=== PATIENT | male | born 1970 | race Caucasian/White ===

== ENCOUNTER 2023-11-20 10:57 | Inpatient (IN) | payer MEDICAID, OTHER ==
[~2023-11-20] VITALS: Ht 177.8 cm; Wt 73.4 kg
[2023-11-20 14:07] LABS: Basophils # (auto) 0.1 10 ^3/uL (0-0.2); Basophils % (auto) 0.5 % (0.0-2.0); Eosinophils # (auto) 0.2 10 ^3/uL (0-0.8); Eosinophils % (auto) 1.4 % (0.0-7.0); Hemoglobin 11.8 g/dL (13.5-17.5); Lymphocytes # (auto) 1.2 10 ^3/uL (0.4-5.4); Lymphocytes % (auto) 7.4 % (10.0-50.0); Mean Corpuscular Hemoglobin 30.3 pg (28.0-32.0); Mean Corpuscular Hgb Conc. 33.7 g/dL (32.0-36.0); Mean Corpuscular Volume 89.9 fL (80.0-100.0); Monocytes # (auto) 1.7 10 ^3/uL (0-1.3); Monocytes % (auto) 10.6 % (0.0-12.0); Neutrophils # (auto) 13.2 10 ^3/uL (1.6-8.6); Neutrophils % (auto) 80.1 % (37.0-80.0); Red Blood Cells 3.89 10^6/uL (4.5-5.90); Red Cell Distribution Width 12.7 % (11.8-14.3); White Blood Cell 16.4 10^3/uL (4.4-10.8)
[2023-11-20 14:17] LABS: Chloride 105 mmol/L (98-107); Sodium 138 mmol/L (136-145)
[2023-11-20 14:18] LABS: Anion Gap 7 (5-15); Calcium 9.2 mg/dL (8.7-10.4); Carbon Dioxide 26 mmol/L (20-30)
[2023-11-20 14:23] LABS: BUN/Creatinine Ratio 16.5 (10.0-20.0); Blood Urea Nitrogen 21 mg/dL (9-23); Glucose 107 mg/dL (74-106)
[2023-11-20] MEDS: VANCOMYCIN 1GM/200ML 200 ML IV ONE (15:27)
[2023-11-20] MEDS: PIPERACILLIN-TAZO 4.5GM 100 ML IV ONE (16:31)
[2023-11-20 16:37] VITALS: PULSE 74; RESP 15; O2SAT 98
[2023-11-20] MEDS: DEXTROSE (50%) 50ML SYRG IV ONE (16:45)
[2023-11-20] MEDS: PIPERACILLIN-TAZOB 3.375GM 100 ML IV ONE (16:45)
[2023-11-20] MEDS ORDERED: ONDANSETRON HCL 4 MG/2 ML VIAL IV PRN (16:45)
[2023-11-20] MEDS ORDERED: HYDROmorphone HCL 2 MG/ML VL/or syr IV PRN (16:45)
[2023-11-20] MEDS ORDERED: VANCOMYCIN PER PHARMACY 0 MG IV SCH (16:45)
[2023-11-20] MEDS: InsuLIN REG 1unit/0.01ml Soln (100units/ml) SC ONE (17:00)
[2023-11-20] MEDS: ACCU-CHEK COMFORT CURVE STRIP VI ONE (18:01)
[2023-11-20] MEDS: ACETAMINOPHEN 325 MG TAB PO PRN (20:00)
[2023-11-20 20:30] VITALS: PULSE 78; RESP 15; O2SAT 97
[2023-11-20] MEDS: SODIUM CHLOR 0.9% PF (SALINE LOCK) 10ML VIAL/SYR IV SCH (22:03)
[2023-11-21] MEDS: VANCOMYCIN 1GM/200ML 200 ML IV SCH (05:57)
[2023-11-21 07:45] VITALS: PULSE 88; RESP 18; O2SAT 98
[2023-11-21 09:49] VITALS: BP 145/87; PULSE 108; RESP 20; TEMP 99.6; O2SAT 92
[2023-11-21] MEDS ORDERED: DEXTROSE (50%) 50ML SYRG IV PRN (10:15)
[2023-11-21] MEDS: InsuLIN REG 1unit/0.01ml Soln (100units/ml) SC SCH (11:30)
[2023-11-21] MEDS: ACCU-CHEK COMFORT CURVE STRIP VI SCH (12:36)
[2023-11-21 15:25] VITALS: BP 145/87; PULSE 108; RESP 20; TEMP 99.6; O2SAT 94
[2023-11-21] MEDS: PIPERACILLIN-TAZOB 3.375GM 100 ML IV SCH (17:58)
[2023-11-21] MEDS ORDERED: MID10T GT (18:53)
[2023-11-21] MEDS ORDERED: SIMV10TA20 PO (18:53)
[2023-11-21] MEDS ORDERED: GLIP5TAB12 PO (18:53)
[2023-11-21 20:00] VITALS: BP 130/72; PULSE 92; RESP 20; TEMP 98.9; O2SAT 92; O2SAT 95
[2023-11-21 22:00] VITALS: BP 130/72; PULSE 92; RESP 20; TEMP 98.9; O2SAT 92
[2023-11-21] MEDS: HYDROcodone-ACET 5/325MG TAB PO PRN (23:50)
[2023-11-22] VITALS (7 sets, daily range): BP systolic 104–130; BP diastolic 58–75; PULSE 80–92; RESP 17–20; TEMP 97.9–99.7; O2SAT 92–97
[2023-11-22 06:30] LABS: Anion Gap 9 (5-15); Carbon Dioxide 22 mmol/L (20-30); Chloride 105 mmol/L (98-107); Potassium 3.8 mmol/L (3.5-5.1); Sodium 136 mmol/L (136-145)
[2023-11-22 06:32] LABS: Calcium 8.8 mg/dL (8.5-10.1)
[2023-11-22 06:34] LABS: Basophils # (auto) 0.1 10 ^3/uL (0-0.2); Basophils % (auto) 0.4 % (0.0-2.0); Eosinophils # (auto) 0.3 10 ^3/uL (0-0.8); Eosinophils % (auto) 1.7 % (0.0-7.0); Hematocrit 28.5 % (41.0-53.0); Hemoglobin 9.5 g/dL (13.5-17.5); Lymphocytes # (auto) 1.2 10 ^3/uL (0.4-5.4); Lymphocytes % (auto) 7.6 % (10.0-50.0); Mean Corpuscular Hemoglobin 29.8 pg (28.0-32.0); Mean Corpuscular Hgb Conc. 33.2 g/dL (32.0-36.0); Mean Corpuscular Volume 89.9 fL (80.0-100.0); Monocytes # (auto) 1.6 10 ^3/uL (0-1.3); Monocytes % (auto) 10.1 % (0.0-12.0); Neutrophils # (auto) 12.5 10 ^3/uL (1.6-8.6); Neutrophils % (auto) 80.2 % (37.0-80.0); Nucleated Red Blood Cells % 0.1 %; Red Blood Cells 3.17 10^6/uL (4.5-5.90); Red Cell Distribution Width 12.5 % (11.8-14.3); White Blood Cell 15.6 10^3/uL (4.4-10.8)
[2023-11-22 06:36] LABS: BUN/Creatinine Ratio 17.1 (10.0-20.0); Blood Urea Nitrogen 21 mg/dL (9-23); Glucose 177 mg/dL (74-106)
[2023-11-22 07:57] LABS: Triglycerides 85 mg/dL (< 150)
[2023-11-22 07:58] LABS: LDL Cholesterol 55 mg/dL (< 100)
[2023-11-22 08:00] LABS: Cholesterol 84 mg/dL (< 200); HDL Cholesterol 19 mg/dL (40-59)
[2023-11-22] MEDS: LACTULOSE 20Gm/30ML SOLN PO ONE (11:50)
[2023-11-22 11:59] LABS: INR 1.19 (0.9-1.15); Partial Thromboplastin Time 35.6 SEC (24.5-34.5); Prothrombin Time 12.4 sec (9.3-11.8)
[2023-11-22] MEDS ORDERED: PNEUMOCOCCAL VACC POLYS 25 MCG/0.5 ML VIAL IM ONE (22:00)
[2023-11-23] VITALS (7 sets, daily range): BP systolic 108–141; BP diastolic 65–85; PULSE 75–86; RESP 14–20; TEMP 97.5–99.2; O2SAT 95–98
[2023-11-23] MEDS: VANCOMYCIN 1GM/200ML 200 ML IV SCH (01:46)
[2023-11-23 04:48] LABS: Basophils # (auto) 0.1 10 ^3/uL (0-0.2); Basophils % (auto) 0.5 % (0.0-2.0); Eosinophils # (auto) 0.4 10 ^3/uL (0-0.8); Eosinophils % (auto) 2.8 % (0.0-7.0); Hematocrit 29.3 % (41.0-53.0); Hemoglobin 9.6 g/dL (13.5-17.5); Mean Corpuscular Hemoglobin 29.5 pg (28.0-32.0); Mean Corpuscular Hgb Conc. 32.6 g/dL (32.0-36.0); Mean Corpuscular Volume 90.6 fL (80.0-100.0); Monocytes # (auto) 1.4 10 ^3/uL (0-1.3); Monocytes % (auto) 9.9 % (0.0-12.0); Neutrophils # (auto) 11.6 10 ^3/uL (1.6-8.6); Neutrophils % (auto) 79.8 % (37.0-80.0); Red Blood Cells 3.24 10^6/uL (4.5-5.90); Red Cell Distribution Width 12.9 % (11.8-14.3); White Blood Cell 14.6 10^3/uL (4.4-10.8)
[2023-11-23 05:00] LABS: Chloride 105 mmol/L (98-107); Potassium 4.1 mmol/L (3.5-5.1); Sodium 135 mmol/L (136-145)
[2023-11-23 05:01] LABS: Anion Gap 9 (5-15); Carbon Dioxide 21 mmol/L (20-30)
[2023-11-23 05:02] LABS: Calcium 8.6 mg/dL (8.7-10.4)
[2023-11-23 05:06] LABS: BUN/Creatinine Ratio 16.9 (10.0-20.0); Blood Urea Nitrogen 21 mg/dL (9-23); Glucose 186 mg/dL (74-106)
[2023-11-23] MEDS: LACTULOSE 20Gm/30ML SOLN PO ONE (16:21)
[2023-11-23] MEDS: DOCUSATE SOD 100 MG CAP PO ONE (16:31)
[2023-11-23] MEDS: DOCUSATE SOD 100 MG CAP PO SCH (21:33)
[2023-11-24] VITALS (7 sets, daily range): BP systolic 107–121; BP diastolic 67–79; PULSE 77–84; RESP 17–18; TEMP 98.2–99.8; O2SAT 94–98
[2023-11-24 07:17] LABS: Basophils # (auto) 0.1 10 ^3/uL (0-0.2); Eosinophils # (auto) 0.4 10 ^3/uL (0-0.8); Hemoglobin 9.8 g/dL (13.5-17.5)
[2023-11-24 07:28] LABS: Basophils % (auto) 0.6 % (0.0-2.0); Eosinophils % (auto) 3.4 % (0.0-7.0); Hematocrit 29.4 % (41.0-53.0); Lymphocytes % (auto) 8.7 % (10.0-50.0); Mean Corpuscular Hgb Conc. 33.4 g/dL (32.0-36.0); Mean Corpuscular Volume 89.7 fL (80.0-100.0); Neutrophils % (auto) 78.3 % (37.0-80.0); Red Blood Cells 3.28 10^6/uL (4.5-5.90); Red Cell Distribution Width 12.7 % (11.8-14.3); White Blood Cell 11.5 10^3/uL (4.4-10.8)
[2023-11-24 07:39] LABS: Anion Gap 7 (5-15); Carbon Dioxide 23 mmol/L (20-30); Chloride 106 mmol/L (98-107); Potassium 4.3 mmol/L (3.5-5.1); Sodium 136 mmol/L (136-145)
[2023-11-24 07:40] LABS: Calcium 8.9 mg/dL (8.7-10.4)
[2023-11-24 07:45] LABS: BUN/Creatinine Ratio 17.2 (10.0-20.0); Blood Urea Nitrogen 20 mg/dL (9-23); Glucose 188 mg/dL (74-106)
[2023-11-25] VITALS (15 sets, daily range): BP systolic 112–141; BP diastolic 67–87; PULSE 75–92; RESP 12–22; TEMP 97.9–99.5; O2SAT 95–99
[2023-11-25 06:35] LABS: Basophils # (auto) 0.1 10 ^3/uL (0-0.2); Basophils % (auto) 0.6 % (0.0-2.0); Eosinophils # (auto) 0.5 10 ^3/uL (0-0.8); Hemoglobin 9.8 g/dL (13.5-17.5); Lymphocytes # (auto) 1.1 10 ^3/uL (0.4-5.4); Lymphocytes % (auto) 9.7 % (10.0-50.0); Neutrophils # (auto) 9.1 10 ^3/uL (1.6-8.6); Nucleated Red Blood Cells % 0.1 %
[2023-11-25 06:39] LABS: Hematocrit 29.3 % (41.0-53.0); Mean Corpuscular Hemoglobin 30.5 pg (28.0-32.0); Mean Corpuscular Hgb Conc. 33.4 g/dL (32.0-36.0); Mean Corpuscular Volume 91.4 fL (80.0-100.0); Monocytes % (auto) 8.2 % (0.0-12.0); Neutrophils % (auto) 77.5 % (37.0-80.0); Red Blood Cells 3.21 10^6/uL (4.5-5.90); Red Cell Distribution Width 12.5 % (11.8-14.3); White Blood Cell 11.7 10^3/uL (4.4-10.8)
[2023-11-25 06:51] LABS: Anion Gap 11 (5-15); Carbon Dioxide 21 mmol/L (20-30); Chloride 106 mmol/L (98-107); Potassium 4.5 mmol/L (3.5-5.1); Sodium 138 mmol/L (136-145)
[2023-11-25 06:52] LABS: Calcium 8.8 mg/dL (8.7-10.4)
[2023-11-25 06:57] LABS: BUN/Creatinine Ratio 16.1 (10.0-20.0); Blood Urea Nitrogen 19 mg/dL (9-23); Glucose 129 mg/dL (74-106)
[2023-11-25 06:58] LABS: Magnesium 2.1 mg/dL (1.6-2.6)
[2023-11-25] MEDS: fentaNYL CITRATE 100 MCG/2 ML VL IV ONE (09:30)
[2023-11-25] MEDS: LIDOCAINE VISCOUS 2% 15ML UD MT ONE (09:30)
[2023-11-25] MEDS: MIDAZOLAM HCL 2MG/2ML 2ml VIAL (1mg/ml) IV ONE (09:30)
[2023-11-25] MEDS: ENOXAPARIN SOD 40 MG/0.4 ML SYRINGE SC SCH (10:00)
[2023-11-26 04:17] VITALS: BP 116/68; PULSE 77; RESP 18; TEMP 98.3; O2SAT 96
[2023-11-26 09:00] VITALS: BP 116/74; PULSE 77; RESP 12; TEMP 98.8; O2SAT 97
[2023-11-26] MEDS: LACTULOSE 20Gm/30ML SOLN PO SCH (11:38)
[2023-11-26 13:00] VITALS: BP 124/75; PULSE 71; RESP 16; TEMP 97.9; O2SAT 97
[2023-11-26 16:47] VITALS: BP 114/74; PULSE 74; RESP 14; TEMP 98.4; O2SAT 95
[2023-11-26] MEDS: GADOTERATE MEG 10 MMOL/20ml INJ (0.5MMOL/ml) IV ONE (17:26)
[2023-11-26 22:00] VITALS: BP 114/75; PULSE 84; RESP 16; TEMP 98.2; O2SAT 96
[2023-11-27 05:00] VITALS: BP 115/67; PULSE 81; RESP 18; TEMP 98; O2SAT 97
[2023-11-27 05:26] LABS: Basophils # (auto) 0.1 10 ^3/uL (0-0.2); Eosinophils # (auto) 0.4 10 ^3/uL (0-0.8); Red Cell Distribution Width 12.6 % (11.8-14.3)
[2023-11-27 05:29] LABS: Basophils % (auto) 0.9 % (0.0-2.0); Eosinophils % (auto) 3.5 % (0.0-7.0); Hematocrit 31.5 % (41.0-53.0); Hemoglobin 10.2 g/dL (13.5-17.5); Lymphocytes # (auto) 1.1 10 ^3/uL (0.4-5.4); Lymphocytes % (auto) 9.4 % (10.0-50.0); Mean Corpuscular Hemoglobin 29.2 pg (28.0-32.0); Mean Corpuscular Hgb Conc. 32.5 g/dL (32.0-36.0); Monocytes # (auto) 0.9 10 ^3/uL (0-1.3); Monocytes % (auto) 8.4 % (0.0-12.0); Neutrophils # (auto) 8.7 10 ^3/uL (1.6-8.6); Neutrophils % (auto) 77.8 % (37.0-80.0); White Blood Cell 11.2 10^3/uL (4.4-10.8)
[2023-11-27 05:31] LABS: Chloride 107 mmol/L (98-107); Potassium 4.5 mmol/L (3.5-5.1); Sodium 138 mmol/L (136-145)
[2023-11-27 05:32] LABS: Anion Gap 7 (5-15); Carbon Dioxide 24 mmol/L (20-30)
[2023-11-27 05:33] LABS: Calcium 9.1 mg/dL (8.5-10.1)
[2023-11-27 05:37] LABS: BUN/Creatinine Ratio 19.1 (10.0-20.0); Blood Urea Nitrogen 22 mg/dL (9-23); Glucose 174 mg/dL (74-106)
[2023-11-27 09:00] VITALS: BP 112/72; PULSE 75; RESP 18; TEMP 97.9; O2SAT 98
[2023-11-27] MEDS: ceFAZolin 2 GM/D5W100ml 100 ML IV ONE (11:45)
[2023-11-27] MEDS ORDERED: fentaNYL CITRATE 100 MCG/2 ML VL ONE (11:55)
[2023-11-27] MEDS ORDERED: MEPERIDINE HCL (25 MG/ML) 1ML VIAL ONE (11:55)
[2023-11-27] MEDS ORDERED: MIDAZOLAM HCL 2MG/2ML 2ml VIAL (1mg/ml) ONE (11:55)
[2023-11-27] MEDS ORDERED: PROPOFOL 10 MG/ML 20 ML IV ONE (12:11)
[2023-11-27] MEDS ORDERED: DexAMETHasone SOD PHOS 10MG/1ML VIAL INJ ONE (12:11)
[2023-11-27] MEDS ORDERED: ONDANSETRON HCL 4 MG/2 ML VIAL ONE (12:11)
[2023-11-27] MEDS ORDERED: ONDANSETRON HCL 4 MG/2 ML VIAL IV PRN (13:15)
[2023-11-27] MEDS ORDERED: MORPHINE SULFATE 4 MG/ML SYR/VIAL IV PRN (13:15)
[2023-11-27] MEDS ORDERED: MIDAZOLAM HCL 2MG/2ML 2ml VIAL (1mg/ml) IV PRN (13:15)
[2023-11-27] MEDS ORDERED: ePHEDrine SULFATE 50 MG/ML AMP IV PRN (13:15)
[2023-11-27] MEDS ORDERED: HYDROmorphone HCL 2 MG/ML VL/or syr IV PRN (13:15)
[2023-11-27] MEDS ORDERED: LABETALOL HCL 5 MG/ML 4ML SYRINGE IV PRN (13:15)
[2023-11-27 17:00] VITALS: BP 143/84; PULSE 84; RESP 16; TEMP 98; O2SAT 97
[2023-11-27] MEDS: VANCOMYCIN 1GM/200ML 200 ML IV SCH (17:34)
[2023-11-27 20:00] VITALS: BP 127/85; PULSE 80; RESP 17; TEMP 97.7; O2SAT 98
[2023-11-27] MEDS: INFLUENZA QUAD 2023-2024 0.5 ML SYRG IM ONE (21:23)
[2023-11-27 22:00] VITALS: BP 127/85; PULSE 80; RESP 17; TEMP 97.7; O2SAT 98
[2023-11-28 05:00] VITALS: BP 101/59; PULSE 71; RESP 17; TEMP 97.8; O2SAT 98
[2023-11-28 07:37] LABS: Chloride 105 mmol/L (98-107); Potassium 3.9 mmol/L (3.5-5.1); Sodium 138 mmol/L (136-145)
[2023-11-28 07:38] LABS: Anion Gap 9 (5-15); Carbon Dioxide 24 mmol/L (20-30)
[2023-11-28 07:39] LABS: Calcium 9.1 mg/dL (8.5-10.1)
[2023-11-28 07:44] LABS: BUN/Creatinine Ratio 17.8 (10.0-20.0); Blood Urea Nitrogen 19 mg/dL (9-23); Glucose 250 mg/dL (74-106)
[2023-11-28 07:47] LABS: Basophils # (auto) 0.1 10 ^3/uL (0-0.2); Basophils % (auto) 0.6 % (0.0-2.0); Eosinophils # (auto) 0.2 10 ^3/uL (0-0.8); Eosinophils % (auto) 2.4 % (0.0-7.0); Hematocrit 31.1 % (41.0-53.0); Hemoglobin 10.4 g/dL (13.5-17.5); Lymphocytes # (auto) 1.1 10 ^3/uL (0.4-5.4); Lymphocytes % (auto) 11.9 % (10.0-50.0); Mean Corpuscular Hemoglobin 30.1 pg (28.0-32.0); Mean Corpuscular Hgb Conc. 33.3 g/dL (32.0-36.0); Mean Corpuscular Volume 90.3 fL (80.0-100.0); Monocytes # (auto) 0.7 10 ^3/uL (0-1.3); Monocytes % (auto) 7.2 % (0.0-12.0); Neutrophils # (auto) 7.5 10 ^3/uL (1.6-8.6); Neutrophils % (auto) 77.9 % (37.0-80.0); Nucleated Red Blood Cells % 0.1 %; Red Blood Cells 3.44 10^6/uL (4.5-5.90); Red Cell Distribution Width 12.5 % (11.8-14.3); White Blood Cell 9.6 10^3/uL (4.4-10.8)
[2023-11-28 09:00] VITALS: BP 102/65; PULSE 68; RESP 17; TEMP 97.7; O2SAT 99
[2023-11-28 10:34] LABS: Urine Bacteria NONE SEEN /hpf (None Seen); Urine Blood Negative /uL (Negative); Urine Clarity Clear (Clear); Urine Color Yellow (Yellow); Urine Protein, UAD TRACE (Negative); Urine Urobilinogen Normal (Negative); Urine WBC 1 /hpf (0 - 3); Urine pH 5.5 (5.0-8.0)
[2023-11-28 11:02] LABS: INR 1.17 (0.9-1.15); Partial Thromboplastin Time 33.3 SEC (24.5-34.5); Prothrombin Time 12.2 sec (9.3-11.8)
[2023-11-28 13:00] VITALS: BP 105/70; PULSE 69; RESP 16; TEMP 97.8; O2SAT 100
[2023-11-28 17:00] VITALS: BP 120/75; PULSE 67; RESP 15; TEMP 97.6; O2SAT 98
[2023-11-28] MEDS: LIDOCAINE 1% (LOCAL ANESTH.) PF 5ml SDV ID ONE (18:30)
[2023-11-28 20:00] VITALS: BP 114/72; PULSE 79; RESP 16; TEMP 98.1; O2SAT 99
[2023-11-28] MEDS: SODIUM CHLOR 0.9% PF (SALINE LOCK) 10ML VIAL/SYR IV SCH (21:34)
[2023-11-28] MEDS: DAKINS QUARTER STR 0.125% (NaHypochlorite) 473 ML TOPICAL SOL TOP SCH (21:34)
[2023-11-28 22:00] VITALS: BP 114/72; PULSE 16; TEMP 98.1; O2SAT 99
[2023-11-29 04:00] VITALS: BP 107/68; PULSE 79; RESP 17; TEMP 98.4; O2SAT 98
[2023-11-29 09:00] VITALS: BP 97/64; PULSE 80; RESP 20; TEMP 97.9; O2SAT 100
[2023-11-29 14:00] VITALS: BP 101/70; PULSE 65; RESP 99; TEMP 98.1; O2SAT 99
[2023-11-29 14:30] LABS: Chloride 107 mmol/L (98-107); Potassium 4.5 mmol/L (3.5-5.1); Sodium 138 mmol/L (136-145)
[2023-11-29 14:31] LABS: Anion Gap 7 (5-15); Calcium 8.8 mg/dL (8.7-10.4); Carbon Dioxide 24 mmol/L (20-30)
[2023-11-29 14:36] LABS: BUN/Creatinine Ratio 24.1 (10.0-20.0); Blood Urea Nitrogen 27 mg/dL (9-23); Glucose 173 mg/dL (74-106)
[2023-11-29] MEDS: VANCOMYCIN 1GM/200ML 200 ML IV SCH (16:11)
[2023-11-29 17:00] VITALS: BP 120/74; PULSE 70; RESP 20; TEMP 98.1; O2SAT 96
[2023-11-29 18:22] LABS: COVID19 ANTIGEN SOFIA FIA NEGATIVE (NEGATIVE)
[2023-11-29 21:56] VITALS: BP 146/80; PULSE 74; RESP 17; TEMP 97.6; O2SAT 100
[2023-11-30 05:00] VITALS: BP 109/70; PULSE 76; RESP 14; TEMP 98; O2SAT 94
[2023-11-30 06:13] LABS: Basophils # (auto) 0.1 10 ^3/uL (0-0.2); Eosinophils # (auto) 0.2 10 ^3/uL (0-0.8); Lymphocytes # (auto) 1.1 10 ^3/uL (0.4-5.4)
[2023-11-30 06:15] LABS: Eosinophils % (auto) 1.8 % (0.0-7.0); Lymphocytes % (auto) 10.6 % (10.0-50.0); Mean Corpuscular Hemoglobin 30.7 pg (28.0-32.0); Mean Corpuscular Hgb Conc. 34.5 g/dL (32.0-36.0); Monocytes # (auto) 0.9 10 ^3/uL (0-1.3); Monocytes % (auto) 8.7 % (0.0-12.0); Neutrophils # (auto) 7.8 10 ^3/uL (1.6-8.6); Neutrophils % (auto) 77.9 % (37.0-80.0); Red Blood Cells 3.59 10^6/uL (4.5-5.90); Red Cell Distribution Width 12.8 % (11.8-14.3); White Blood Cell 10.1 10^3/uL (4.4-10.8)
[2023-11-30 06:37] LABS: Anion Gap 7 (5-15); Carbon Dioxide 23 mmol/L (20-30); Chloride 107 mmol/L (98-107); Potassium 4.4 mmol/L (3.5-5.1); Sodium 137 mmol/L (136-145)
[2023-11-30 06:38] LABS: Calcium 8.9 mg/dL (8.7-10.4)
[2023-11-30 06:42] LABS: Blood Urea Nitrogen 22 mg/dL (9-23)
[2023-11-30 06:43] LABS: BUN/Creatinine Ratio 19.6 (10.0-20.0); Glucose 163 mg/dL (74-106)
[2023-11-30 09:00] VITALS: BP 95/62; PULSE 75; RESP 14; TEMP 98; O2SAT 98
[2023-11-30 13:00] VITALS: BP 109/75; PULSE 76; RESP 12; TEMP 97.8; O2SAT 95
[2023-11-30 17:00] VITALS: BP 138/85; PULSE 77; RESP 16; TEMP 97.4; O2SAT 95
[2023-12-01] VITALS (7 sets, daily range): BP systolic 93–138; BP diastolic 48–77; PULSE 60–82; RESP 12–19; TEMP 97.6–98.1; O2SAT 94–98
[2023-12-02] VITALS (7 sets, daily range): BP systolic 93–113; BP diastolic 43–71; PULSE 72–86; RESP 16–20; TEMP 98–98.4; O2SAT 96–99
[2023-12-02 05:53] LABS: Basophils # (auto) 0.1 10 ^3/uL (0-0.2); Eosinophils # (auto) 0.3 10 ^3/uL (0-0.8); Hemoglobin 11.2 g/dL (13.5-17.5); Lymphocytes # (auto) 1.3 10 ^3/uL (0.4-5.4); Mean Corpuscular Hemoglobin 29.8 pg (28.0-32.0); Monocytes # (auto) 0.8 10 ^3/uL (0-1.3); Red Blood Cells 3.76 10^6/uL (4.5-5.90); White Blood Cell 9.4 10^3/uL (4.4-10.8)
[2023-12-02 05:57] LABS: Basophils % (auto) 0.8 % (0.0-2.0); Eosinophils % (auto) 2.8 % (0.0-7.0); Hematocrit 33.4 % (41.0-53.0); Lymphocytes % (auto) 13.5 % (10.0-50.0); Mean Corpuscular Hgb Conc. 33.5 g/dL (32.0-36.0); Monocytes % (auto) 8.5 % (0.0-12.0); Neutrophils % (auto) 74.4 % (37.0-80.0); Red Cell Distribution Width 12.6 % (11.8-14.3)
[2023-12-02 06:03] LABS: Chloride 107 mmol/L (98-107); Potassium 4.1 mmol/L (3.5-5.1); Sodium 139 mmol/L (136-145)
[2023-12-02 06:04] LABS: Anion Gap 8 (5-15); Carbon Dioxide 24 mmol/L (20-30)
[2023-12-02 06:05] LABS: Calcium 9.3 mg/dL (8.7-10.4)
[2023-12-02 06:09] LABS: Glucose 110 mg/dL (74-106)
[2023-12-02 06:10] LABS: Albumin 3.9 g/dL (3.2-4.8); BUN/Creatinine Ratio 19.8 (10.0-20.0); Blood Urea Nitrogen 24 mg/dL (9-23)
[2023-12-02 06:12] LABS: Phosphorus 3.8 mg/dL (2.4-5.1)
[2023-12-03 05:47] VITALS: BP 109/63; PULSE 80; RESP 18; TEMP 98.2; O2SAT 98
[2023-12-03 07:13] LABS: Basophils # (auto) 0.1 10 ^3/uL (0-0.2); Eosinophils # (auto) 0.4 10 ^3/uL (0-0.8); Eosinophils % (auto) 4.3 % (0.0-7.0); Hematocrit 31.9 % (41.0-53.0); Hemoglobin 10.5 g/dL (13.5-17.5); Lymphocytes # (auto) 1.1 10 ^3/uL (0.4-5.4); Lymphocytes % (auto) 11.2 % (10.0-50.0); Mean Corpuscular Hemoglobin 29.2 pg (28.0-32.0); Mean Corpuscular Volume 88.7 fL (80.0-100.0); Monocytes # (auto) 0.9 10 ^3/uL (0-1.3); Monocytes % (auto) 9.6 % (0.0-12.0); Neutrophils # (auto) 7.1 10 ^3/uL (1.6-8.6); Neutrophils % (auto) 73.9 % (37.0-80.0); Nucleated Red Blood Cells % 0.1 %; Red Blood Cells 3.59 10^6/uL (4.5-5.90); Red Cell Distribution Width 12.9 % (11.8-14.3); White Blood Cell 9.6 10^3/uL (4.4-10.8)
[2023-12-03 07:16] LABS: Chloride 108 mmol/L (98-107); Potassium 4.1 mmol/L (3.5-5.1); Sodium 138 mmol/L (136-145)
[2023-12-03 07:17] LABS: Anion Gap 7 (5-15); Calcium 9.2 mg/dL (8.5-10.1); Carbon Dioxide 23 mmol/L (20-30)
[2023-12-03 07:22] LABS: BUN/Creatinine Ratio 19.6 (10.0-20.0); Blood Urea Nitrogen 21 mg/dL (9-23)
[2023-12-03 07:24] LABS: Glucose 218 mg/dL (74-106)
[2023-12-03 09:00] VITALS: BP 101/64; PULSE 77; RESP 19; TEMP 99.6; O2SAT 94
[2023-12-03 13:00] VITALS: BP 121/76; PULSE 74; RESP 18; TEMP 98.4; O2SAT 98
[2023-12-03 17:00] VITALS: BP 124/73; PULSE 78; RESP 20; TEMP 98.4; O2SAT 96
[2023-12-03] MEDS: LACTULOSE 20Gm/30ML SOLN PO ONE (17:17)
[2023-12-03 20:00] VITALS: PULSE 78; RESP 18; O2SAT 96
[2023-12-03 22:00] VITALS: BP 112/68; PULSE 80; RESP 17; TEMP 98.5; O2SAT 97
[2023-12-04] VITALS (7 sets, daily range): BP systolic 90–148; BP diastolic 63–77; PULSE 74–108; RESP 15–20; TEMP 97.7–98.6; O2SAT 94–98
[2023-12-04 08:13] LABS: Basophils # (auto) 0.1 10 ^3/uL (0-0.2); Eosinophils # (auto) 0.5 10 ^3/uL (0-0.8); Eosinophils % (auto) 5.1 % (0.0-7.0); Hematocrit 31.7 % (41.0-53.0); Hemoglobin 10.6 g/dL (13.5-17.5); Lymphocytes % (auto) 11.2 % (10.0-50.0); Mean Corpuscular Hemoglobin 29.5 pg (28.0-32.0); Mean Corpuscular Hgb Conc. 33.4 g/dL (32.0-36.0); Mean Corpuscular Volume 88.4 fL (80.0-100.0); Neutrophils # (auto) 6.5 10 ^3/uL (1.6-8.6); Neutrophils % (auto) 71.7 % (37.0-80.0); Red Blood Cells 3.58 10^6/uL (4.5-5.90); Red Cell Distribution Width 12.6 % (11.8-14.3); White Blood Cell 9.1 10^3/uL (4.4-10.8)
[2023-12-04 08:33] LABS: INR 1.14 (0.9-1.15); Partial Thromboplastin Time 38.5 SEC (24.5-34.5); Prothrombin Time 11.9 sec (9.3-11.8)
[2023-12-04 08:40] LABS: Chloride 107 mmol/L (98-107); Sodium 137 mmol/L (136-145)
[2023-12-04 08:41] LABS: Anion Gap 7 (5-15); Carbon Dioxide 23 mmol/L (20-30)
[2023-12-04 08:42] LABS: Calcium 9.2 mg/dL (8.5-10.1)
[2023-12-04 08:46] LABS: BUN/Creatinine Ratio 17.5 (10.0-20.0); Blood Urea Nitrogen 20 mg/dL (9-23); Glucose 198 mg/dL (74-106)
[2023-12-04] MEDS ORDERED: GLYCOPYRROLATE 0.2 MG/ML 1ML VIAL ONE (14:30)
[2023-12-04] MEDS ORDERED: KETAMINE 50mg/ML 1ml syringe ONE (14:30)
[2023-12-04] MEDS ORDERED: ePHEDrine SULFATE 50 MG/ML AMP ONE (14:30)
[2023-12-04] MEDS ORDERED: PROPOFOL 10 MG/ML 20 ML IV ONE (14:30)
[2023-12-04] MEDS ORDERED: fentaNYL CITRATE 100 MCG/2 ML VL ONE (14:30)
[2023-12-04] MEDS ORDERED: DexAMETHasone SOD PHOS 10MG/1ML VIAL INJ ONE (14:30)
[2023-12-04] MEDS ORDERED: MIDAZOLAM HCL 2MG/2ML 2ml VIAL (1mg/ml) ONE (14:30)
[2023-12-04] MEDS ORDERED: KETOROLAC TROMETH 30 MG/ML 1ML VIAL ONE (14:30)
[2023-12-04] MEDS ORDERED: ONDANSETRON HCL 4 MG/2 ML VIAL ONE (14:30)
[2023-12-04] MEDS ORDERED: MEPERIDINE HCL (25 MG/ML) 1ML VIAL ONE (14:31)
[2023-12-04] MEDS: BUPIVACAINE W/ EPINEPH 0.5% INJ 50ML MDV IJ ONE (14:35)
[2023-12-04] MEDS ORDERED: HYDROmorphone HCL 2 MG/ML VL/or syr IV PRN (15:45)
[2023-12-04] MEDS ORDERED: ONDANSETRON HCL 4 MG/2 ML VIAL IV PRN (15:45)
[2023-12-04] MEDS: ACCU-CHEK COMFORT CURVE STRIP VI ONE (15:45)
[2023-12-04] MEDS: FLEET ENEMA(ADULT) 135 ML PR ONE (22:21)
[2023-12-05 05:00] VITALS: BP 155/66; PULSE 94; RESP 18; TEMP 97.4; O2SAT 98
[2023-12-05 09:00] VITALS: BP 129/60; PULSE 83; RESP 18; TEMP 98.3; O2SAT 97
[2023-12-05 13:00] VITALS: BP 116/72; PULSE 74; RESP 20; TEMP 98.1; O2SAT 98
[2023-12-05 16:50] VITALS: BP 119/65; PULSE 76; RESP 18; TEMP 97.8; O2SAT 98
[2023-12-05 22:00] VITALS: BP 146/78; PULSE 80; RESP 21; TEMP 98; O2SAT 98
[2023-12-06 05:00] VITALS: BP 138/70; PULSE 78; RESP 21; TEMP 98; O2SAT 98
[2023-12-06 07:30] VITALS: PULSE 78
[2023-12-06 09:00] VITALS: BP 125/75; PULSE 84; RESP 20; TEMP 98.6; O2SAT 94
[2023-12-06 13:00] VITALS: BP 137/54; PULSE 81; RESP 20; TEMP 98.2; O2SAT 95
[2023-12-06 16:48] VITALS: BP 158/87; PULSE 79; RESP 20; TEMP 98.8; O2SAT 97
[2023-12-06 17:27] VITALS: BP 138/70; PULSE 78; RESP 21; TEMP 37.1; O2SAT 98
== END 2023-12-06 19:38 | disposition home or self-care (01) | DRG 720 ==
LOC: ER 10:57 → OVERFLOW 16:40 → WEST WING 11-21 09:32
PROVIDERS: ADMIT Internal Medicine; ATTEND Internal Medicine Geriatric Medicine
PROC: 0JBQ0ZZ Excision of Right Foot Subcutaneous Tissue and Fascia, Open Approach (ICD-10-PCS; 2023-11-27)
PROC: 0R9L3ZX Drainage of Right Elbow Joint, Percutaneous Approach, Diagnostic (ICD-10-PCS; 2023-11-27)
PROC: 05HC33Z Insertion of Infusion Device into Left Basilic Vein, Percutaneous Approach (ICD-10-PCS; principal; 2023-11-28)
PROC: B54NZZA Ultrasonography of Left Upper Extremity Veins, Guidance (ICD-10-PCS; 2023-11-28)
DX: A41.9 Sepsis, unspecified organism (principal); E11.52 Type 2 diabetes mellitus with diabetic peripheral angiopathy with gangrene; D68.69 Other thrombophilia; M00.9 Pyogenic arthritis, unspecified; L97.519 Non-pressure chronic ulcer of other part of right foot with unspecified severity; L03.115 Cellulitis of right lower limb; E11.621 Type 2 diabetes mellitus with foot ulcer; L02.611 Cutaneous abscess of right foot; I07.1 Rheumatic tricuspid insufficiency; B95.61 Methicillin susceptible Staphylococcus aureus infection as the cause of diseases classified elsewhere; E78.5 Hyperlipidemia, unspecified; M60.9 Myositis, unspecified; M19.021 Primary osteoarthritis, right elbow; E11.65 Type 2 diabetes mellitus with hyperglycemia; I10 Essential (primary) hypertension; M21.339 Wrist drop, unspecified wrist
CPT/HCPCS: 36415; 36569; 71045; 73080; 73223; 73700; 73721; 76881; 76942; 80048; 80061; 80202; 81001; 82040; 82306; 82565; 82962; 83036; 83735; 84100; 84439; 84443; 84550; 85025; 85610; 85730; 86850; 86900; 86901; 87040; 87070; 87075; 87077; 87086; 87088; 87186; 87205; 87426; 93005; 93312; 93971; 99152; G0378; J1100; J1815; J1885; J2250; J2405; J2543; J2704